=== PATIENT | male | born 1935 | race Caucasian/White ===

== ENCOUNTER 2024-03-02 12:55 | Inpatient (IN) | payer MEDICAID ==
[~2024-03-02] VITALS: Ht 154.9 cm; Wt 89.1 kg
[2024-03-02 13:32] VITALS: BP_SYST 97; PULSE 94; RESP 18; TEMP 98.3; O2SAT 94
[2024-03-02 14:10] LABS: COVID19 ANTIGEN SOFIA FIA NEGATIVE (NEGATIVE)
[2024-03-02 14:12] LABS: INFLUENZA TYPE A Negative (NEGATIVE); INFLUENZA TYPE B NEGATIVE (NEGATIVE)
[2024-03-02] MEDS: guaiFENesin/DEXTROMETHORPHAN 10 ML UDC PO ONE (14:49)
[2024-03-02] MEDS ORDERED: LIP20 PO (15:34)
[2024-03-02] MEDS ORDERED: METF-834 PO (15:34)
[2024-03-02] MEDS ORDERED: LEVO100T9 PO (15:34)
[2024-03-02] MEDS ORDERED: CARV6.2554 PO (15:34)
[2024-03-02 16:08] LABS: BASOPHILS % (AUTO) 0.6 % (0.0-2.0); EOSINOPHILS # (AUTO) 0.3 K/uL (0.0-0.4); EOSINOPHILS % (AUTO) 4.7 % (0.0-4.0); HEMATOCRIT 41.2 % (36-54); HEMOGLOBIN 14.1 g/dL (14.0-18.0); LYMPHOCYTES % (AUTO) 15.5 % (20.5-51.5); MEAN CORPUSCULAR HEMOGLOBIN 33 pg (27-31); MEAN CORPUSCULAR HGB CONC 34 % (32-36); MEAN CORPUSCULAR VOLUME 96 fL (79.0-98.0); MONOCYTES # (AUTO) 1.2 K/uL (0.0-1.0); MONOCYTES % (AUTO) 17.6 % (1.7-9.3); NEUTROPHILS # (AUTO) 4.2 K/uL (1.8-7.7); NEUTROPHILS % (AUTO) 61.6 % (40.0-70.0); PLATELET COUNT (AUTO) 215 K/uL (130-430); RED BLOOD CELL COUNT(AUTO) 4.31 MIL/uL (4.2-6.2); RED CELL DISTRIBUTION WIDTH 14.5 % (9.0-15.0); WHITE BLOOD COUNT (AUTO) 6.8 K/uL (4.8-10.8)
[2024-03-02 16:17] LABS: INR 1.1 (0.80-1.20); PROTHROMBIN TIME 11.5 SECS (9.5-12.5)
[2024-03-02 16:18] LABS: ALBUMIN 2.9 g/dL (3.4-4.8); ANION GAP 9 (5-15); BILIRUBIN,DIRECT 0.1 mg/dL (0.0-0.3); CALCIUM 8.6 mg/dL (8.4-11.0); CARBON DIOXIDE 26 mmol/L (23-29); CHLORIDE 103 mmol/L (98-107); CREATININE 0.88 mg/dL (0.55-1.30); GLUCOSE 107 mg/dL (74-106); SODIUM SERUM 138 mmol/L (136-145); TOTAL BILIRUBIN 0.8 mg/dL (0.0-1.0); TOTAL PROTEIN, SERUM 7.3 g/dL (6.4-8.3); UREA NITROGEN, BLOOD 13 mg/dL (8-21)
[2024-03-02 17:02] LABS: ALANINE AMINOTRANSFERASE 13 U/L (12-78); ASPARTATE AMINOTRANSFERASE 18 U/L (10-37)
[2024-03-02 17:51] LABS: BILIRUBIN,URINE NEGATIVE (NEGATIVE); BLOOD, URINE NEGATIVE (NEGATIVE); CLARITY/URINE CLEAR (CLEAR); COLOR,URINE YELLOW (YELLOW); GLUCOSE,URINE NEGATIVE (NEGATIVE); KETONES,URINE NEGATIVE (NEGATIVE); LEUKOCYTE ESTERASE ,URINE NEGATIVE (NEGATIVE); NITRITE, URINE NEGATIVE (NEGATIVE); PROTEIN URINE NEGATIVE (NEGATIVE); UROBILINOGEN,URINE 0.2 (0.2-1.0)
[2024-03-02] MEDS ORDERED: cefTRIAXone 1 GM VIAL ONE ×2 (18:21→18:31)
[2024-03-02] MEDS: cefTRIAXone 1 GM in D5W 50 ML IV ONE (18:26)
[2024-03-02 18:56] VITALS: BP_SYST 125; PULSE 88; RESP 16; TEMP 98.6; O2SAT 98
[2024-03-02 20:00] VITALS: BP_SYST 128; PULSE 96; RESP 16; TEMP 98.7; O2SAT 93
[2024-03-02] MEDS: AZITHROMYCIN 500 MG in NS 250 ML IV ONE (21:04)
[2024-03-02 21:05] VITALS: O2SAT 93
[2024-03-02] MEDS ORDERED: ONDANSETRON HCL 4 MG/2 ML VIAL IVP PRN (22:30)
[2024-03-02] MEDS: IPRATROPIUM/ALBUTEROL SULFATE 3 ML AMPUL.NEB (DUONEB) INH ONE (22:30)
[2024-03-02] MEDS ORDERED: GLUCOSE (DEXTROSE) ORAL GEL -Adults PO PRN (23:30)
[2024-03-02] MEDS: ENOXAPARIN SODIUM 40 MG/0.4 ML SYRINGE SUBCUT ONE (23:30)
[2024-03-02] MEDS ORDERED: DEXTROSE 50% JECT 50 ML DISP.SYRIN IVP PRN (23:30)
[2024-03-02] MEDS ORDERED: D5W 1,000 ML IV PRN (23:30)
[2024-03-03] VITALS (10 sets, daily range): BP systolic 100–132; PULSE 80–102; RESP 16–18; TEMP 98–98.7; O2SAT 91–99
[2024-03-03] MEDS: LEVOTHYROXINE SODIUM 0.1 MG TABLET PO SCH (06:46)
[2024-03-03 07:01] LABS: BASOPHILS % (AUTO) 0.5 % (0.0-2.0); EOSINOPHILS # (AUTO) 0.2 K/uL (0.0-0.4); EOSINOPHILS % (AUTO) 3.2 % (0.0-4.0); HEMATOCRIT 39.8 % (36-54); HEMOGLOBIN 13.3 g/dL (14.0-18.0); LYMPHOCYTES # (AUTO) 0.8 K/uL (1.0-5.5); LYMPHOCYTES % (AUTO) 12.1 % (20.5-51.5); MEAN CORPUSCULAR HEMOGLOBIN 32 pg (27-31); MEAN CORPUSCULAR HGB CONC 33 % (32-36); MEAN CORPUSCULAR VOLUME 97 fL (79.0-98.0); MONOCYTES # (AUTO) 1.3 K/uL (0.0-1.0); MONOCYTES % (AUTO) 20.3 % (1.7-9.3); NEUTROPHILS # (AUTO) 4.2 K/uL (1.8-7.7); NEUTROPHILS % (AUTO) 63.9 % (40.0-70.0); PLATELET COUNT (AUTO) 209 K/uL (130-430); RED CELL DISTRIBUTION WIDTH 14.4 % (9.0-15.0); WHITE BLOOD COUNT (AUTO) 6.5 K/uL (4.8-10.8)
[2024-03-03] MEDS: IPRATROPIUM/ALBUTEROL SULFATE 3 ML AMPUL.NEB (DUONEB) INH SCH ×2 (07:11→20:02)
[2024-03-03 07:48] LABS: ALANINE AMINOTRANSFERASE 12 U/L (12-78); ALBUMIN 2.6 g/dL (3.4-4.8); ANION GAP 6 (5-15); ASPARTATE AMINOTRANSFERASE 19 U/L (10-37); CALCIUM 8.4 mg/dL (8.4-11.0); CARBON DIOXIDE 27 mmol/L (23-29); CHLORIDE 104 mmol/L (98-107); CREATININE 0.83 mg/dL (0.55-1.30); FREE T4 (FREE THYROXINE) 1.6 ng/dl (0.8-1.5); GLUCOSE 98 mg/dL (74-106); SODIUM SERUM 137 mmol/L (136-145); THYROID STIMULATING HORMONE 1.53 uIu/mL (0.36-3.74); TOTAL BILIRUBIN 0.9 mg/dL (0.0-1.0); TOTAL PROTEIN, SERUM 6.8 g/dL (6.4-8.3); UREA NITROGEN, BLOOD 13 mg/dL (8-21)
[2024-03-03 07:54] LABS: INR 1.2 (0.80-1.20); PROTHROMBIN TIME 11.9 SECS (9.5-12.5)
[2024-03-03] MEDS: ASPIRIN 81 MG TABLET(ECOTRIN) PO SCH (08:45)
[2024-03-03] MEDS: ATORVASTATIN 20 MG TABLET PO SCH (08:46)
[2024-03-03] MEDS: IPRATROPIUM/ALBUTEROL SULFATE 3 ML AMPUL.NEB (DUONEB) INH PRN (15:12)
[2024-03-03] MEDS: LACTOBACILLUS RHAMNOSUS GG 1 CAP CAPSULE PO ONE (16:38)
[2024-03-03] MEDS: LACTOBACILLUS RHAMNOSUS GG 1 CAP CAPSULE PO SCH (20:46)
[2024-03-03] MEDS: ENOXAPARIN SODIUM 40 MG/0.4 ML SYRINGE SUBCUT SCH (20:53)
[2024-03-03] MEDS: CARVEDILOL 6.25 MG TABLET (COREG) PO SCH (20:53)
[2024-03-04] VITALS (9 sets, daily range): BP systolic 97–112; PULSE 69–108; RESP 16–18; TEMP 98–101; O2SAT 91–94
[2024-03-04] MEDS: ACETAMINOPHEN 325 MG TABLET PO PRN (20:46)
[2024-03-05] VITALS (14 sets, daily range): BP systolic 88–126; PULSE 69–134; RESP 18–20; TEMP 97.8–98.4; O2SAT 91–97
[2024-03-05] MEDS: NACL 0.9% 1,000 ML IV SCH (01:17)
[2024-03-05] MEDS: VANCOMYCIN HCL 1000 MG/VIAL IV ONE (03:12)
[2024-03-05] MEDS: VANCOMYCIN HCL 1,000 MG in NS 250 ML IV ONE (03:19)
[2024-03-05] MEDS: PIPERACILLIN/TAZO 3.375 GM in D5W 50 ML IV SCH (07:05)
[2024-03-05 07:58] LABS: ANION GAP 5 (5-15); CALCIUM 7.8 mg/dL (8.4-11.0); CARBON DIOXIDE 26 mmol/L (23-29); CHLORIDE 103 mmol/L (98-107); CREATININE 0.74 mg/dL (0.55-1.30); GLUCOSE 100 mg/dL (74-106); POTASSIUM 3.8 mmol/L (3.5-5.1); SODIUM SERUM 134 mmol/L (136-145); UREA NITROGEN, BLOOD 13 mg/dL (8-21)
[2024-03-05 08:02] LABS: BASOPHILS % (AUTO) 0.6 % (0.0-2.0); EOSINOPHILS # (AUTO) 0.1 K/uL (0.0-0.4); EOSINOPHILS % (AUTO) 1.9 % (0.0-4.0); HEMATOCRIT 39.9 % (36-54); HEMOGLOBIN 13.8 g/dL (14.0-18.0); LYMPHOCYTES # (AUTO) 0.6 K/uL (1.0-5.5); LYMPHOCYTES % (AUTO) 10.4 % (20.5-51.5); MEAN CORPUSCULAR HEMOGLOBIN 33 pg (27-31); MEAN CORPUSCULAR HGB CONC 35 % (32-36); MEAN CORPUSCULAR VOLUME 95 fL (79.0-98.0); MONOCYTES % (AUTO) 15.9 % (1.7-9.3); NEUTROPHILS # (AUTO) 4.3 K/uL (1.8-7.7); NEUTROPHILS % (AUTO) 71.2 % (40.0-70.0); PLATELET COUNT (AUTO) 196 K/uL (130-430); RED BLOOD CELL COUNT(AUTO) 4.19 MIL/uL (4.2-6.2); RED CELL DISTRIBUTION WIDTH 14.3 % (9.0-15.0); WHITE BLOOD COUNT (AUTO) 6.1 K/uL (4.8-10.8)
[2024-03-05 08:09] LABS: ERYTHROCYTE SEDIMENTATION RATE 70 MM/HR (0-15)
[2024-03-05] MEDS: AMIODARONE HCL 200 MG TABLET PO SCH (09:04)
[2024-03-05] MEDS: AZITHROMYCIN 500 MG in NS 250 ML IV SCH (11:33)
[2024-03-06] VITALS (11 sets, daily range): BP systolic 116–142; PULSE 68–96; RESP 16–18; TEMP 97.5–98.7; O2SAT 94–99
[2024-03-06 08:05] LABS: BASOPHILS % (AUTO) 0.3 % (0.0-2.0); EOSINOPHILS # (AUTO) 0.2 K/uL (0.0-0.4); HEMOGLOBIN 13.9 g/dL (14.0-18.0); MEAN CORPUSCULAR HEMOGLOBIN 33 pg (27-31); MEAN CORPUSCULAR HGB CONC 34 % (32-36); MEAN CORPUSCULAR VOLUME 96 fL (79.0-98.0); MONOCYTES # (AUTO) 1.1 K/uL (0.0-1.0); MONOCYTES % (AUTO) 18.4 % (1.7-9.3); NEUTROPHILS # (AUTO) 3.7 K/uL (1.8-7.7); NEUTROPHILS % (AUTO) 61.3 % (40.0-70.0); PLATELET COUNT (AUTO) 194 K/uL (130-430); RED BLOOD CELL COUNT(AUTO) 4.27 MIL/uL (4.2-6.2); RED CELL DISTRIBUTION WIDTH 14.3 % (9.0-15.0)
[2024-03-06 08:44] LABS: ALANINE AMINOTRANSFERASE 18 U/L (12-78); ALBUMIN 2.4 g/dL (3.4-4.8); ANION GAP 8 (5-15); ASPARTATE AMINOTRANSFERASE 31 U/L (10-37); CALCIUM 8.3 mg/dL (8.4-11.0); CARBON DIOXIDE 27 mmol/L (23-29); CHLORIDE 105 mmol/L (98-107); CREATININE 0.92 mg/dL (0.55-1.30); FREE T4 (FREE THYROXINE) 1.9 ng/dl (0.8-1.5); GLUCOSE 102 mg/dL (74-106); POTASSIUM 3.9 mmol/L (3.5-5.1); SODIUM SERUM 140 mmol/L (136-145); THYROID STIMULATING HORMONE 2.13 uIu/mL (0.36-3.74); TOTAL BILIRUBIN 0.7 mg/dL (0.0-1.0); TOTAL PROTEIN, SERUM 6.7 g/dL (6.4-8.3); UREA NITROGEN, BLOOD 13 mg/dL (8-21)
[2024-03-07] VITALS (11 sets, daily range): BP systolic 91–106; PULSE 77–90; RESP 14–18; TEMP 97.9–98.4; O2SAT 93–97
[2024-03-07] MEDS: SODIUM CL 3% FOR INHALATION 15 ML VIAL.NEB INH ONE (15:02)
[2024-03-08] VITALS (10 sets, daily range): BP systolic 94–106; PULSE 76–79; RESP 14–20; TEMP 97.3–97.7; O2SAT 92–97
[2024-03-08 10:07] LABS: QUANTIFERON TB GOLD Negative (Negative)
[2024-03-08] MEDS ORDERED: Aspirin Ec PO (18:27)
[2024-03-08] MEDS ORDERED: DOXY100C5 PO (18:27)
[2024-03-08] MEDS ORDERED: AMIO200T68 PO (18:27)
[2024-03-10 03:06] LABS: COCCIDIOIDES AB IGG 0.5 IV (<=0.9); COCCIDIOIDES AB IGM 0.1 IV (<=0.9)
== END 2024-03-08 19:40 | disposition home or self-care (01) | DRG 139 ==
LOC: SED 12:55 → STU 17:41
PROVIDERS: ADMIT Internal Medicine; ATTEND Internal Medicine
DX: J18.9 Pneumonia, unspecified organism (principal); J96.01 Acute respiratory failure with hypoxia; E44.0 Moderate protein-calorie malnutrition; I48.20 Chronic atrial fibrillation, unspecified; E03.9 Hypothyroidism, unspecified; E11.9 Type 2 diabetes mellitus without complications; I11.0 Hypertensive heart disease with heart failure; I50.32 Chronic diastolic (congestive) heart failure; E78.5 Hyperlipidemia, unspecified; I25.10 Atherosclerotic heart disease of native coronary artery without angina pectoris; Z95.5 Presence of coronary angioplasty implant and graft; Z79.899 Other long term (current) drug therapy; Z79.84 Long term (current) use of oral hypoglycemic drugs; Z79.82 Long term (current) use of aspirin; Z68.37 Body mass index [BMI] 37.0-37.9, adult
CPT/HCPCS: 36415; 71045; 71250-TC; 80048; 80053; 80076; 81001; 81003; 83037; 83605; 83735; 83880; 84439; 84443; 84484; 85025; 85379; 85610; 85651; 85730; 86480; 86635; 86738; 87040; 87070; 87086; 87116; 87205; 87449; 93005; 93306; 93970; 94640; 94760; 97116-GP; 97163-GP; 97530-GP; 99285; G0378; J0456; J0696; J1650; J1956; J2543; J3370; J7050; J7060; J7131